=== PATIENT | male | born 1990 | race American Indian/Alaskan Native ===

== ENCOUNTER 2020-08-23 14:52 | Emergency (ER) | payer SELFPAY ==
[2020-08-23 15:29] VITALS: BP 134/84
[2020-08-23] MEDS ORDERED: CYCLOBENZAPRINE 10 MG TAB PO ONE (17:33)
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
--- NOTE | 2020-08-23 18:13 | XRay Report ---
Lumbar spine 2 views INDICATION: Low back pain IMPRESSION: No fracture or subluxation of the lumbar spine is appreciated. Signer Name: Josafat Mercado MD Signed: 08/23/2020 6:09 PM Workstation Name: [id number]
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
== END 2020-08-23 19:00 | disposition home or self-care (01) ==
LOC: ED 14:52
DX: S39.012A Strain of muscle, fascia and tendon of lower back, initial encounter (principal); S16.1XXA Strain of muscle, fascia and tendon at neck level, initial encounter; Z79.899 Other long term (current) drug therapy; V49.49XA Driver injured in collision with other motor vehicles in traffic accident, initial encounter; Y93.89 Activity, other specified; Y92.89 Other specified places as the place of occurrence of the external cause; Y99.8 Other external cause status
CPT/HCPCS: 72040; 72100; 99283